=== PATIENT | female | born 1955 | race African-American/Black ===

== ENCOUNTER 2019-06-07 15:09 | Emergency (ER) | payer SELFPAY ==
[~2019-06-07] VITALS: Ht 170.2 cm; Wt 82.0 kg
[2019-06-07] MEDS: CLONIDINE 0.2MG TABLET PO ONE (16:58)
[2019-06-07 17:42] LABS: *BARBITURATES SCREEN URINE NEGATIVE (NEGATIVE); *BENZODIAZEPINES SCREEN URINE PRESUMTIVE POSITIVE (NEGATIVE); *COCAINE SCREEN URINE PRESUMTIVE POSITIVE (NEGATIVE)
[2019-06-07 17:43] LABS: *AMPHETAMINES SCREEN URINE NEGATIVE (NEGATIVE); CANNABINOID URINE SCREEN NEGATIVE (NEGATIVE); METHADONE URINE SCREEN NEGATIVE (NEGATIVE); OPIATES URINE SCREEN PRESUMTIVE POSITIVE (NEGATIVE); PHENCYCLIDINE URINE SCREEN PRESUMTIVE POSITIVE (NEGATIVE)
[2019-06-07 18:16] VITALS: BP 173/81
== END 2019-06-07 18:18 | disposition home or self-care (01) ==
LOC: ER 15:09
DX: R56.9 Unspecified convulsions (principal); F14.10 Cocaine abuse, uncomplicated; I16.0 Hypertensive urgency; I10 Essential (primary) hypertension; F16.10 Hallucinogen abuse, uncomplicated
CPT/HCPCS: 36415; 80305; 80320; 99283; G0480